=== PATIENT | female | born 1985 | race Caucasian/White ===

== ENCOUNTER 2021-12-06 19:02 | Emergency (ER) | payer OTHER ==
[2021-12-06 19:28] VITALS: BP 118/70; PULSE 84; TEMP 98; BMI 23.5
[2021-12-06] MEDS ORDERED: LACTATED RINGERS SOLUTION 1000 ML INFUS.BAG IV ONE (20:25)
[2021-12-06] MEDS ORDERED: ONDANSETRON 4 MG/2 ML VIAL ONE (20:36)
[2021-12-06] MEDS ORDERED: ONDANSETRON 4 MG/2 ML VIAL IVPUSH ONE (20:36)
[2021-12-06 20:50] LABS: BASO % 0.5 % (0-2.0); EOS % 0.7 % (0-4.5); HEMATOCRIT 38.9 % (32.4-45.2); HEMOGLOBIN 13.3 GM/dL (10.7-15.3); LYMPH % 22.8 % (8-40); MCHC 34.2 g/dl (32.0-36.0); MEAN CELL VOLUME 87.7 fl (80-96); MEAN PLT VOLUME 8.3 fl (7.5-11.1); MONO % 5.9 % (3.8-10.2); NEUT % 70.1 % (42.8-82.8); PLATELET COUNT 238 10^3/uL (134-434); RBC 4.44 M/mm3 (3.60-5.2); RDW 13.3 % (11.6-15.6); WHITE BLOOD COUNT 10.5 K/mm3 (4.0-10.0)
[2021-12-06 20:53] LABS: EPI CELLS >36 /uL (0-25.1); HYALINE CASTS 1 /uL (0-3.1); URINE APPEARANCE CLOUDY; URINE BACTERIA 1207 /uL (0-1359); URINE BILIRUBIN NEGATIVE (NEGATIVE); URINE COLOR YELLOW; URINE GLUCOSE (UA) NEGATIVE (NEGATIVE); URINE KETONE 1+ (NEGATIVE); URINE LEUK ESTERASE 1+ (NEGATIVE); URINE NITRITE NEGATIVE (NEGATIVE); URINE PROTEIN NEGATIVE (NEGATIVE); URINE RBC 11 /uL (0-23.9); URINE UROBILINOGEN 0.2 mg/dL (0.2-1.0); URINE WBC 37 /uL (0-25.8)
[2021-12-06] MEDS ORDERED: CEPHALEXIN MONOHYDRATE 500 MG CAPSULE (UD) PO ONE (20:59)
[2021-12-06 21:13] LABS: CALCIUM 8.9 mg/dL (8.5-10.1)
[2021-12-06 21:14] LABS: ALBUMIN 3.6 g/dl (3.4-5.0); BLOOD UREA NITROGEN 6.1 mg/dL (7-18)
[2021-12-06] MEDS ORDERED: METOCLOPRAMIDE HCL INJECTION 10 MG/2 ML VIAL IVPB ONE (21:15)
[2021-12-06 21:17] LABS: CREATININE 0.7 mg/dL (0.55-1.3)
[2021-12-06 21:18] LABS: BILIRUBIN,TOTAL 0.4 mg/dL (0.2-1)
[2021-12-06 21:19] LABS: TOT PROT 7.2 g/dl (6.4-8.2)
[2021-12-06] MEDS ORDERED: CEPHALEXIN MONOHYDRATE 500 MG CAPSULE (UD) ONE (21:35)
[2021-12-06] MEDS ORDERED: METOCLOPRAMIDE HCL INJECTION 10 MG/2 ML VIAL ONE (21:35)
[2021-12-06] MEDS ORDERED: DEXTROSE 5%-LACTATED RINGERS 1,000 ML IV SCH (22:15)
[2021-12-06] MEDS ORDERED: PYRIDOXINE HCL (B-6) 100 MG TABLET PO ONE (23:11)
[2021-12-06] MEDS ORDERED: PYRIDOXINE HCL (B-6) 50 MG TABLET (FP) PO ONE (23:45)
== END 2021-12-07 00:45 | disposition home or self-care (01) ==
LOC: JER 19:02
PROC: 3E033GC Introduction of Other Therapeutic Substance into Peripheral Vein, Percutaneous Approach (ICD-10-PCS; principal; 2021-12-06)
DX: O26.891 Other specified pregnancy related conditions, first trimester (principal); R55 Syncope and collapse; O21.9 Vomiting of pregnancy, unspecified; Z3A.08 8 weeks gestation of pregnancy
CPT/HCPCS: 36415; 76817-TC; 80053; 81003; 83690; 84484; 84702; 85025; 87086; 93005; 93010; 99285-25